=== PATIENT | female | born 1980 | race Caucasian/White ===

== ENCOUNTER → 2021-08-30 16:04 | Outpatient (CLI) | payer MEDICAID, SELFPAY ==
[2021-08-30 17:55] LABS: Vitamin B12 491 pg/mL (211-911)
[2021-08-30 18:07] LABS: AST(SGOT) 30 U/L (15-37); Alanine Aminotransfer ALT/SGPT 50 U/L (13-56); Albumin, Serum 3.7 g/dL (3.2-5.0); Alkaline Phosphatase 65 U/L (45-117); Anion Gap 9 (5-15); BUN 14 mg/dL (7-18); BUN/Creat Ratio 19.2 RATIO (10-20); Calcium,Total 8.5 mg/dL (8.5-10.1); Chloride 103 mmol/L (98-107); Cholesterol 137 mg/dL (200); Creatinine, Serum 0.73 mg/dL (0.55-1.02); EST Glomerular Filtration Rate 93 mL/min (>60); Est Glom Filt Rate - Afr Amer 112 mL/min (>60); Globulin 3.8 g/dL (2.2-4.2); Glucose 84 mg/dL (74-106); High Density Lipoprotein 72 mg/dL; Potassium 3.6 mmol/L (3.5-5.1); Protein, Total 7.5 g/dL (6.4-8.2); Sodium Level 135 mmol/L (136-145); T4 Total, Thyroxin 10.6 ug/dL (4.8-13.9); Thyroid Stim Hormone (TSH) 1.29 uIU/mL (0.358-3.74); Triglycerides 56 mg/dL; Very Low Density Lipoprotein 11 mg/dL (5-40)
[2021-09-01 22:07] LABS: HCV Quant. RNA PCR 129000 IU/mL (.)
[2021-09-02 13:52] LABS: HCV log 10 5.111 (.)
== END ==
PROVIDERS: Referring Provider Nurse Practitioner Adult Health; Visit Provider Nurse Practitioner Adult Health
DX: B18.2 Chronic viral hepatitis C (principal); R63.5 Abnormal weight gain; F31.81 Bipolar II disorder
CPT/HCPCS: 36415; 80053; 80061; 82306; 82607; 84436; 84443; 87522

== ENCOUNTER 2021-11-16 10:46 | Outpatient (CLI) | payer MEDICAID, SELFPAY ==
[2021-11-16 12:12] LABS: HIV - WCH Non-Reactive (Nonreactive)
[2021-11-19 00:06] LABS: HEPATITIS B SURFACE AG Negative (Negative); Hepatitis A AB, Total Positive (Negative); Hepatitis A IgM Antibody Negative (Negative); Hepatitis B Core AB IgM Negative (Negative); Hepatitis B Core Ab Total Negative (Negative); Hepatitis Be Ab Negative (Negative); Hepatitis Be Ag Negative (Negative)
[2021-11-22 09:00] LABS: Hepatitis C Genotype 3
== END 2021-11-16 23:59 | disposition home or self-care (01) ==
PROVIDERS: Referring Provider Internal Medicine Infectious Disease; Visit Provider Internal Medicine Infectious Disease
DX: B18.2 Chronic viral hepatitis C (principal)
CPT/HCPCS: 36415; 86703; 86704; 86705; 86706; 86707; 86708; 86709; 87340; 87350; 87902

== ENCOUNTER 2021-11-17 10:48 | Outpatient (CLI) | payer MEDICAID, SELFPAY ==
--- NOTE | 2021-11-17 10:54 | US_ITS ---
STUDY: ABDOMINAL ULTRASOUND REASON FOR EXAM: Female, 41 years old. CHRONIC VIRAL HEPATITIS C/R/O MASSES FIBROSIS TECHNIQUE: Transabdominal ultrasound was performed with real-time and static hodge scale imaging. TECHNICAL QUALITY: Adequate. COMPARISON: None. FINDINGS: Liver: The liver measures 13.5 cm. There is normal echogenicity of the liver. The bile ducts are within normal limits. There is hepatic color flow. The direction of portal flow is hepatopetal. There is no demonstrated mass lesion. Portal vein measurement: Gallbladder: The patient is status post cholecystectomy. Common Bile Duct (C.B.D.): The common bile duct measures 6 mm. Pancreas: Normal size of the head, body and tail of the pancreas. There is normal echogenicity of the pancreas. There is no demonstrated pancreatic mass or cyst. Spleen: Normal size of the spleen. The spleen measures 11.1 cm x 4.8 cm x 4.1 cm. Right Kidney: Normal size of the right kidney. The right kidney measures 10.7 cm x 5.4 cm x 4.4 cm. Normal renal cortex. The right cortex measures 1.7 cm. There is no demonstrated renal mass or cyst. There is no right hydronephrosis. Left Kidney: Normal size of the left kidney. The left kidney measures 11.6 cm x 5.6 cm x 6.6 cm. Normal renal cortex. The left cortex measures 2.3 cm. There is no demonstrated renal mass or cyst. There is no left hydronephrosis. Aorta: Unremarkable I.V.C.: The IVC is patent. There is no ascites. US/Abdomen Complete IMPRESSION: Normal abdominal ultrasound examination. The patient is status post cholecystectomy. Electronically Signed: Naeem Webber MD at 13:25 EST ,
== END 2021-11-17 23:59 | disposition short-term general hospital (02) ==
LOC: US 10:49
PROVIDERS: Referring Provider Internal Medicine Infectious Disease; Visit Provider Internal Medicine Infectious Disease
DX: B18.2 Chronic viral hepatitis C (principal)
CPT/HCPCS: 76700

== ENCOUNTER 2022-01-03 13:47 | Outpatient (CLI) | payer MEDICAID, SELFPAY ==
[2022-01-03 15:17] LABS: AST(SGOT) 18 U/L (15-37); Alanine Aminotransfer ALT/SGPT 17 U/L (13-56); Albumin, Serum 3.8 g/dL (3.2-5.0); Alkaline Phosphatase 72 U/L (45-117); Bilirubin, Direct 0.12 mg/dL (0.00-0.30); Globulin 3.4 g/dL (2.2-4.2); Protein, Total 7.2 g/dL (6.4-8.2)
[2022-01-06 21:07] LABS: HCV Quant. RNA PCR HCV Not Detected IU/mL (.)
== END 2022-01-03 23:59 | disposition home or self-care (01) ==
LOC: LAB 13:49
PROVIDERS: Referring Provider Internal Medicine Infectious Disease; Visit Provider Internal Medicine Infectious Disease
DX: B18.2 Chronic viral hepatitis C (principal)
CPT/HCPCS: 36415; 80076; 87522